=== PATIENT | female | born 1960 | race Caucasian/White ===

== ENCOUNTER 2018-03-11 06:03 | Day surgery (SDC) | payer OTHER ==
[~2018-03-11] VITALS: Ht 152.4 cm; Wt 63.9 kg
[2018-03-11] MEDS ORDERED: SODIUM CHLORIDE 0.9% 1,000 ML IV SCH (06:53)
[2018-03-11 06:54] VITALS: BP 129/73
[2018-03-11] MEDS ORDERED: LORA10TA72 PO (07:01)
[2018-03-11] MEDS ORDERED: ACET-1600 PO (07:01)
[2018-03-11] MEDS ORDERED: NYQUIL PO (07:01)
[2018-03-11] MEDS ORDERED: LIDOCAINE-MPF 1%, 5ML ONE (07:57)
[2018-03-11] MEDS ORDERED: MIDAZOLAM 1 MG/ML, 5ML ONE (08:15)
[2018-03-11] MEDS ORDERED: FLUMAZENIL 0.1 MG/1 ML, 5ML ONE (08:15)
[2018-03-11] MEDS ORDERED: FENTANYL PF 100 MCG/2ML ONE (08:15)
[2018-03-11] MEDS ORDERED: NALOXONE 1 MG/ML, 2ML ONE (08:16)
== END 2018-03-11 11:30 | disposition home or self-care (01) ==
LOC: OUT 06:03
PROVIDERS: ATTEND Nurse Practitioner Family
DX: C34.92 Malignant neoplasm of unspecified part of left bronchus or lung (principal); F32.9 Major depressive disorder, single episode, unspecified; E78.00 Pure hypercholesterolemia, unspecified; K21.9 Gastro-esophageal reflux disease without esophagitis; Z88.8 Allergy status to other drugs, medicaments and biological substances; Z90.710 Acquired absence of both cervix and uterus; Z87.39 Personal history of other diseases of the musculoskeletal system and connective tissue; Z91.02 Food additives allergy status; Z72.89 Other problems related to lifestyle
CPT/HCPCS: 32405; 71045; 77012; 88305; 88341; 88342; 88360; 99156; C2613; J2250; J3010; J7030; 99157; J2310

== ENCOUNTER → 2018-03-20 | Outpatient (CLI) | payer OTHER ==
[~2018-03-20] MED LIST: ACET-1600 PO; GADOBUTROL 7.5 MMOL/7.5 ML PFS ONE; LORA10TA72 PO; NYQUIL PO
== END | disposition home or self-care (01) ==
LOC: PETCFH 09:35
PROVIDERS: ATTEND Nurse Practitioner Family
DX: R59.0 Localized enlarged lymph nodes (principal); R91.8 Other nonspecific abnormal finding of lung field
CPT/HCPCS: 70553; 78815; A9552; A9585

== ENCOUNTER → 2018-03-21 | Outpatient (CLI) | payer OTHER ==
[~2018-03-21] MED LIST changes: -GADOBUTROL 7.5 MMOL/7.5 ML PFS ONE
== END | disposition home or self-care (01) ==
LOC: ROC 10:01
PROVIDERS: ATTEND Radiology Radiation Oncology
DX: C34.32 Malignant neoplasm of lower lobe, left bronchus or lung (principal)
CPT/HCPCS: 99214; G0463

== ENCOUNTER 2018-05-30 14:29 | Outpatient (CLI) | payer OTHER ==
[~2018-05-30 14:29] MED LIST changes: +AMOX1TAB64 PO; +BENZ100C PO; +CISP1VIA3 IV; +IBUP-1484 PO; +ONDA4TAB7 PO; +OXYC5SOL8 PO; +PANT40TA3 PO; +PROC10TA2 PO; +[UNRECOGNIZED DRUG - REMARK] IV
== END 2018-05-30 23:59 | disposition home or self-care (01) ==
LOC: RAD 14:29
PROVIDERS: ATTEND Internal Medicine Hematology & Oncology
DX: Z02.9 Encounter for administrative examinations, unspecified (principal)

== ENCOUNTER 2018-06-09 10:14 | Day surgery (SDC) | payer OTHER ==
[~2018-06-09] VITALS: Ht 152.4 cm; Wt 54.4 kg
[2018-06-09] MEDS ORDERED: SODIUM CHLORIDE 0.9% 1,000 ML IV SCH (10:34)
[2018-06-09] MEDS ORDERED: CEFAZOLIN PMX 1GM/50ML 50 ML IV ONE (11:00)
[2018-06-09 11:02] VITALS: BP 127/96
[2018-06-09] MEDS ORDERED: PANT40TA5 PO (11:08)
[2018-06-09] MEDS ORDERED: LIDOCAINE 1%, 20ML ONE (11:08)
[2018-06-09] MEDS ORDERED: FLUMAZENIL 0.1 MG/1 ML, 5ML ONE (11:55)
[2018-06-09] MEDS ORDERED: MIDAZOLAM 1 MG/ML, 5ML ONE (11:55)
[2018-06-09] MEDS ORDERED: NALOXONE 1 MG/ML, 2ML ONE (11:55)
[2018-06-09] MEDS ORDERED: FENTANYL PF 100 MCG/2ML ONE (11:55)
== END 2018-06-09 14:15 | disposition home or self-care (01) ==
LOC: OUT 10:14
PROVIDERS: ATTEND Internal Medicine Hematology & Oncology
DX: Z45.2 Encounter for adjustment and management of vascular access device (principal); C34.12 Malignant neoplasm of upper lobe, left bronchus or lung; Z79.82 Long term (current) use of aspirin; Z90.710 Acquired absence of both cervix and uterus; Z98.890 Other specified postprocedural states; Z87.891 Personal history of nicotine dependence
CPT/HCPCS: 36561; 76937; 77001; 99156; 99157; C1788; J0690; J1642; J2250; J3010; J3490; J7030; J2310

== ENCOUNTER → 2018-06-10 | Outpatient (CLI) | payer OTHER ==
[~2018-06-10] MED LIST changes: +OMNIPAQUE 350 MG/ML, 100ML BOTTLE ONE; +PANT40TA5 PO
== END | disposition home or self-care (01) ==
LOC: CFH 14:12
PROVIDERS: ATTEND Internal Medicine Hematology & Oncology
DX: C34.12 Malignant neoplasm of upper lobe, left bronchus or lung (principal); R91.8 Other nonspecific abnormal finding of lung field; J98.11 Atelectasis
CPT/HCPCS: 71260; Q9967

== ENCOUNTER 2018-07-11 07:57 | Outpatient (CLI) | payer OTHER ==
[~2018-07-11 07:57] MED LIST changes: -OMNIPAQUE 350 MG/ML, 100ML BOTTLE ONE
== END 2018-07-11 23:59 | disposition home or self-care (01) ==
LOC: ROC 07:57 → EDSTATUS 04-14 10:49
PROVIDERS: ATTEND Radiology Radiation Oncology
DX: Z08 Encounter for follow-up examination after completed treatment for malignant neoplasm (principal); C34.12 Malignant neoplasm of upper lobe, left bronchus or lung
CPT/HCPCS: 99213; G0463

== ENCOUNTER → 2018-07-23 | Outpatient (CLI) | payer OTHER ==
[~2018-07-23] MED LIST changes: +OMNIPAQUE 350 MG/ML, 100ML BOTTLE ONE
== END | disposition home or self-care (01) ==
LOC: CFH 15:04
PROVIDERS: ATTEND Radiology Radiation Oncology
DX: C34.12 Malignant neoplasm of upper lobe, left bronchus or lung (principal); J98.11 Atelectasis; K86.89 Other specified diseases of pancreas; Z92.21 Personal history of antineoplastic chemotherapy; Z87.891 Personal history of nicotine dependence
CPT/HCPCS: 71260; 74177; Q9967

== ENCOUNTER 2018-08-27 14:17 | Emergency (ER) | payer OTHER ==
[~2018-08-27] VITALS: Ht 152.4 cm; Wt 48.4 kg
--- NOTE | 2018-08-27 14:45 | NUR ---
CONTACT WITH PT, 58 YR OLD FEMALE HERE WITH C/O "MY HEART RATE IS ACCELERATED. PT ALSO WITH C/O VOMITING, CONSTIPATION, HAD RADIATION 2 WEEKS AGO (BRAIN, LAST ONE) I'M FEELING ALL THE BAD STUFF COMING AROUND NOW"
[2018-08-27 15:26] LABS: BASOPHILS # (AUTO) 0.08 x10^3/uL (0-0.1); BASOPHILS % (AUTO) 1 % (0-1); EOSINOPHILS # (AUTO) 0.12 x10^3/uL (0-0.4); EOSINOPHILS % (AUTO) 2 % (1-7); LYMPHOCYTES # (AUTO) 0.71 x10^3/uL (1-3.4); LYMPHOCYTES % (AUTO) 12 % (22-44); MD NO; MEAN CORPUSCULAR HEMOGLOBIN 28.6 pg (27.0-34.8); MEAN CORPUSCULAR HGB CONC 33.5 g/dL (32.4-35.8); MEAN CORPUSCULAR VOLUME 85.2 fL (80-100); MEAN PLATELET VOLUME 6.9 fL (7.4-10.4); MONOCYTES # (AUTO) 0.66 x10^3/uL (0.2-0.8); MONOCYTES % (AUTO) 11 % (2-9); NEUTROPHILS # (AUTO) 4.59 x10^3/uL (1.8-6.8); NEUTROPHILS % (AUTO) 75 % (42-75); PLATELET COUNT 265 x10^3/uL (130-400); RED BLOOD COUNT 3.79 x10^6/uL (3.82-5.3); RED CELL DISTRIBUTION WIDTH 16.9 % (9.6-15.2)
[2018-08-27 15:32] LABS: ALANINE AMINOTRANSFERASE 19 U/L (12-78); ALBUMIN 3.3 g/dL (3.4-5.0); ANION GAP 9 mmol/L (5-15); CALCIUM 9.1 mg/dL (8.5-10.1); CHLORIDE 104 mmol/L (98-107); CREATININE 0.79 mg/dL (0.55-1.02)
[2018-08-27 15:37] LABS: ALKALINE PHOSPHATASE 129 U/L (45-117); BILIRUBIN,TOTAL 0.3 mg/dL (0.2-1.0); TOTAL PROTEIN 7.3 g/dL (6.4-8.2); TROPONIN I < 0.015 ng/mL (0.000-0.045)
--- NOTE | 2018-08-27 16:35 | NUR ---
PT WITH CONT ST PER MONITOR. PT DENIES PAIN, SOB. NO ACUTE DISTRESS NOTED. AWAITING MD RE-EVAL.
[2018-08-27] MEDS ORDERED: OMNIPAQUE 350 MG/ML, 100ML BOTTLE ONE (17:56)
--- NOTE | 2018-08-27 18:10 | NUR ---
NO CHANGE IN PT CONDITION NOTED. CONT ST PER MONITOR. CONT TO DENY PAIN/SOB. WAITING FOR FURTHER DISPOSITION. NO NEEDS EXPRESSED AT THIS TIME.
--- NOTE | 2018-08-27 18:52 | NUR ---
JONH CATH DC'D WITH INTACT AFTER FLUSHING WITH HEPARIN PER PROTOCOL. HEPARIN DOSE CHECKED WITH [facility]. PT WAITING FOR ARRIVAL FOR TRANSPORT HOME. NO NEEDS EXPRESSED AT THIS TIME.
[2018-08-27 19:21] VITALS: BP 104/54
== END 2018-08-27 19:37 | disposition home or self-care (01) ==
LOC: ED 18:10
DX: R00.0 Tachycardia, unspecified (principal); Z87.891 Personal history of nicotine dependence; Z79.82 Long term (current) use of aspirin
CPT/HCPCS: 36415; 71275; 80053; 83735; 83880; 84436; 84443; 84484; 85025; 85379; 93005; 99284; Q9967

== ENCOUNTER → 2018-08-27 | Outpatient (CLI) | payer OTHER ==
[~2018-08-27] MED LIST changes: -OMNIPAQUE 350 MG/ML, 100ML BOTTLE ONE
== END | disposition home or self-care (01) ==
LOC: EDSTATUS 08-14 16:15 → ROC 10:44
PROVIDERS: ATTEND Radiology Radiation Oncology
DX: C34.12 Malignant neoplasm of upper lobe, left bronchus or lung (principal)
CPT/HCPCS: 99213; G0463

== ENCOUNTER 2018-10-09 14:38 | Emergency (ER) | payer OTHER ==
[~2018-10-09] VITALS: Ht 152.4 cm; Wt 45.5 kg
--- NOTE | 2018-10-09 15:08 | NUR ---
Sheree león in [facility] - 10/09/18 at 1508 by MARYJO PT MOVED TO ROOM 35
--- NOTE | 2018-10-09 15:08 | NUR ---
PT TO ROOM 31
--- NOTE | 2018-10-09 15:13 | NUR ---
pt requesting to access her port instead of starting iv
[2018-10-09] MEDS ORDERED: SODIUM CHLORIDE 0.9% 1,000ML IVBOLUS ONE (15:30)
[2018-10-09] MEDS ORDERED: ONDANSETRON 2MG/ML, 2ML IVPush ONE (15:30)
[2018-10-09] MEDS ORDERED: ONDANSETRON 2MG/ML, 2ML ONE (15:37)
[2018-10-09 15:50] LABS: BASOPHILS # (AUTO) 0.04 x10^3/uL (0-0.1); BASOPHILS % (AUTO) 1 % (0-1); EOSINOPHILS % (AUTO) 2 % (1-7); LYMPHOCYTES # (AUTO) 1.25 x10^3/uL (1-3.4); LYMPHOCYTES % (AUTO) 19 % (22-44); MD NO; MEAN CORPUSCULAR HEMOGLOBIN 27.6 pg (27.0-34.8); MEAN CORPUSCULAR VOLUME 83.5 fL (80-100); MEAN PLATELET VOLUME 6.5 fL (7.4-10.4); MONOCYTES % (AUTO) 14 % (2-9); NEUTROPHILS # (AUTO) 4.36 x10^3/uL (1.8-6.8); NEUTROPHILS % (AUTO) 66 % (42-75); PLATELET COUNT 433 x10^3/uL (130-400); RED BLOOD COUNT 4.58 x10^6/uL (3.82-5.3); RED CELL DISTRIBUTION WIDTH 16.9 % (9.6-15.2)
[2018-10-09 15:54] LABS: CULTURE INDICATED? NO; MICROSCOPIC NOT IND
[2018-10-09 16:01] LABS: ALBUMIN 3.4 g/dL (3.4-5.0); ANION GAP 10 mmol/L (5-15); CALCIUM 9.6 mg/dL (8.5-10.1); CHLORIDE 100 mmol/L (98-107)
[2018-10-09 16:07] LABS: ALANINE AMINOTRANSFERASE 21 U/L (12-78); ALKALINE PHOSPHATASE 101 U/L (45-117); BILIRUBIN,TOTAL 0.6 mg/dL (0.2-1.0); CREATININE 0.81 mg/dL (0.55-1.02); TROPONIN I < 0.015 ng/mL (0.000-0.045)
[2018-10-09 17:43] VITALS: BP 120/71
--- NOTE | 2018-10-09 17:48 | NUR ---
Patient/Caregiver given discharge instructions and they have confirmed that they understand the instructions. Patient ambulatory with steady gait.
== END 2018-10-09 17:49 | disposition home or self-care (01) ==
LOC: ED 17:40
DX: E86.0 Dehydration (principal); G43.A1 Cyclical vomiting, in migraine, intractable; C34.90 Malignant neoplasm of unspecified part of unspecified bronchus or lung
CPT/HCPCS: 36415; 80053; 81003; 83690; 84484; 85025; 93005; 96361; 96374; 99284; J2405; J7030

== ENCOUNTER 2018-10-31 09:59 | Outpatient (CLI) | payer OTHER ==
[2018-10-31] MEDS ORDERED: OMNIPAQUE 350 MG/ML, 100ML BOTTLE ONE (15:19)
== END 2018-10-31 23:59 | disposition home or self-care (01) ==
LOC: CFH 09:59
PROVIDERS: ATTEND Radiology Radiation Oncology
DX: C34.12 Malignant neoplasm of upper lobe, left bronchus or lung (principal)
CPT/HCPCS: 71260; 74177; Q9967

== ENCOUNTER 2018-11-06 08:00 | Outpatient (CLI) | payer OTHER | END 2018-11-06 23:59 | disposition home or self-care (01) | LOC: ROC 08:00 | PROVIDERS: ATTEND Radiology Radiation Oncology | DX: C34.12 Malignant neoplasm of upper lobe, left bronchus or lung (principal) | CPT/HCPCS: 99213; G0463 ==

== ENCOUNTER 2018-11-27 09:46 | Outpatient (CLI) | payer OTHER | END 2018-11-27 23:59 | disposition home or self-care (01) | LOC: PETCFH 09:46 | PROVIDERS: ATTEND Internal Medicine Hematology & Oncology | DX: C34.12 Malignant neoplasm of upper lobe, left bronchus or lung (principal) | CPT/HCPCS: 78815; A9552 ==

== ENCOUNTER → 2019-04-13 | Outpatient (CLI) | payer OTHER ==
[~2019-04-13] MED LIST changes: -IBUP-1484 PO; +IBUP-1902 PO; +OMNIPAQUE 350 MG/ML, 100ML BOTTLE ONE
== END | disposition home or self-care (01) ==
LOC: CFH 09:01
PROVIDERS: ATTEND Internal Medicine Hematology & Oncology
DX: C34.12 Malignant neoplasm of upper lobe, left bronchus or lung (principal)
CPT/HCPCS: 71260; 74177; Q9967

== ENCOUNTER 2019-04-23 12:42 | Outpatient (CLI) | payer OTHER ==
[~2019-04-23 12:42] MED LIST changes: -OMNIPAQUE 350 MG/ML, 100ML BOTTLE ONE
[2019-04-23] MEDS ORDERED: LIDOCAINE 1%, 10ML ONE (13:04)
== END 2019-04-23 23:59 | disposition home or self-care (01) ==
LOC: RAD 12:42
PROVIDERS: ATTEND Internal Medicine Hematology & Oncology
DX: C34.12 Malignant neoplasm of upper lobe, left bronchus or lung (principal)
CPT/HCPCS: 88305; J3490

== ENCOUNTER → 2019-04-27 | Outpatient (CLI) | payer OTHER | END | disposition home or self-care (01) | LOC: ROC 09:16 | PROVIDERS: ATTEND Radiology Radiation Oncology | DX: Z08 Encounter for follow-up examination after completed treatment for malignant neoplasm (principal); Z92.3 Personal history of irradiation; Z79.899 Other long term (current) drug therapy; Z85.118 Personal history of other malignant neoplasm of bronchus and lung | CPT/HCPCS: 76942; 99213; G0463 ==

== ENCOUNTER → 2019-05-04 | Outpatient (CLI) | payer OTHER ==
[~2019-05-04] MED LIST changes: +GADOTERATE 5 MMOL/10 ML VIAL ONE
== END | disposition home or self-care (01) ==
LOC: CFH 12:37
PROVIDERS: ATTEND Internal Medicine Hematology & Oncology
DX: C79.31 Secondary malignant neoplasm of brain (principal); C34.12 Malignant neoplasm of upper lobe, left bronchus or lung; N63.12 Unspecified lump in the right breast, upper inner quadrant
CPT/HCPCS: 70553; 76642; 77066; A9575; G0279

== ENCOUNTER → 2019-05-11 | Outpatient (CLI) | payer OTHER | END | disposition home or self-care (01) | LOC: CFH 11:14 | PROVIDERS: ATTEND Radiology Radiation Oncology | DX: G31.89 Other specified degenerative diseases of nervous system (principal); I61.1 Nontraumatic intracerebral hemorrhage in hemisphere, cortical; C79.9 Secondary malignant neoplasm of unspecified site; C79.31 Secondary malignant neoplasm of brain | CPT/HCPCS: 70553; A9575 ==

== ENCOUNTER → 2019-07-24 | Outpatient (CLI) | payer OTHER ==
[~2019-07-24] MED LIST changes: -GADOTERATE 5 MMOL/10 ML VIAL ONE; +GADOTERATE 7.5 MMOL/15 ML SYR ONE
== END | disposition home or self-care (01) ==
LOC: CFH 09:23
PROVIDERS: ATTEND Radiology Radiation Oncology
DX: C79.31 Secondary malignant neoplasm of brain (principal); I67.82 Cerebral ischemia; G93.89 Other specified disorders of brain
CPT/HCPCS: 70553; A9575

== ENCOUNTER 2019-07-30 11:00 | Outpatient (CLI) | payer OTHER ==
[~2019-07-30 11:00] MED LIST changes: -GADOTERATE 7.5 MMOL/15 ML SYR ONE
== END 2019-07-30 23:59 | disposition home or self-care (01) ==
LOC: ROC 11:00
PROVIDERS: ATTEND Radiology Radiation Oncology
DX: C79.2 Secondary malignant neoplasm of skin (principal); C34.12 Malignant neoplasm of upper lobe, left bronchus or lung
CPT/HCPCS: 99213; G0463

== ENCOUNTER → 2019-08-10 | Outpatient (CLI) | payer OTHER ==
[~2019-08-10] MED LIST changes: +OMNIPAQUE 350 MG/ML, 100ML BOTTLE ONE
== END | disposition home or self-care (01) ==
LOC: CFH 11:48
PROVIDERS: ATTEND Internal Medicine Hematology & Oncology
DX: C34.12 Malignant neoplasm of upper lobe, left bronchus or lung (principal); C79.51 Secondary malignant neoplasm of bone; J98.4 Other disorders of lung; R91.1 Solitary pulmonary nodule; I31.3 Pericardial effusion (noninflammatory)
CPT/HCPCS: 71260; 74177; Q9967

== ENCOUNTER → 2019-08-20 | Outpatient (CLI) | payer OTHER ==
[~2019-08-20] MED LIST changes: -OMNIPAQUE 350 MG/ML, 100ML BOTTLE ONE
== END | disposition home or self-care (01) ==
LOC: CVU 15:34
PROVIDERS: ATTEND Internal Medicine Hematology & Oncology
DX: C34.12 Malignant neoplasm of upper lobe, left bronchus or lung (principal)
CPT/HCPCS: 93306; 93356

== ENCOUNTER 2019-09-30 07:45 | Outpatient (CLI) | payer OTHER ==
[2019-10-01] MEDS ORDERED: [UNRECOGNIZED DRUG - OTHER] INJ (02:25)
[2019-10-01] MEDS ORDERED: FENT1PAT77 TD (02:25)
[2019-10-01] MEDS ORDERED: METO25TA91 PO (02:25)
[2019-10-01] MEDS ORDERED: LORA-702 PO (02:25)
[2019-10-01] MEDS ORDERED: MULT-508 PO (02:25)
== END 2019-09-30 23:59 | disposition home or self-care (01) ==
LOC: ROC 07:45
PROVIDERS: ATTEND Radiology Radiation Oncology
DX: Z02.9 Encounter for administrative examinations, unspecified (principal)

== ENCOUNTER 2019-10-01 01:07 | Emergency (ER) | payer OTHER ==
[~2019-10-01] VITALS: Ht 152.4 cm; Wt 52.3 kg
[2019-10-01] MEDS ORDERED: MORPHINE SULFATE 4 MG/ML, 1ML ONE ×2 (01:54→04:01)
[2019-10-01] MEDS ORDERED: SODIUM CHLORIDE FLUSH 10ML SYR IVF ONE (02:00)
[2019-10-01] MEDS ORDERED: ONDANSETRON 2MG/ML, 2ML IVPush ONE (02:00)
[2019-10-01] MEDS: MORPHINE SULFATE 4 MG/ML, 1ML IVPush PRN ×2 (02:07→04:04)
[2019-10-01] MEDS ORDERED: ONDANSETRON 2MG/ML, 2ML ONE (02:08)
[2019-10-01 02:20] LABS: BASOPHILS # (AUTO) 0.03 x10^3/uL (0-0.1); BASOPHILS % (AUTO) 0 % (0-1); EOSINOPHILS # (AUTO) 0.07 x10^3/uL (0-0.4); EOSINOPHILS % (AUTO) 1 % (1-7); LYMPHOCYTES % (AUTO) 11 % (22-44); MD NO; MEAN CORPUSCULAR HEMOGLOBIN 28.2 pg (27.0-34.8); MEAN CORPUSCULAR HGB CONC 32.7 g/dL (32.4-35.8); MEAN CORPUSCULAR VOLUME 86.3 fL (80-100); MEAN PLATELET VOLUME 6.9 fL (7.4-10.4); MONOCYTES # (AUTO) 0.68 x10^3/uL (0.2-0.8); MONOCYTES % (AUTO) 9 % (2-9); NEUTROPHILS # (AUTO) 6.08 x10^3/uL (1.8-6.8); NEUTROPHILS % (AUTO) 79 % (42-75); PLATELET COUNT 228 x10^3/uL (130-400); RED BLOOD COUNT 4.05 x10^6/uL (3.82-5.3); RED CELL DISTRIBUTION WIDTH 18.7 % (9.6-15.2)
[2019-10-01] MEDS ORDERED: MULT-508 PO (02:25)
[2019-10-01] MEDS ORDERED: LORA-702 PO (02:25)
[2019-10-01] MEDS ORDERED: [UNRECOGNIZED DRUG - OTHER] INJ (02:25)
[2019-10-01] MEDS ORDERED: METO25TA91 PO (02:25)
[2019-10-01] MEDS ORDERED: FENT1PAT77 TD (02:25)
--- NOTE | 2019-10-01 02:29 | NUR ---
Upon first contact, pt resting in gurney in gown, appears moderately uncomfortable, leaning forward and stating she "cant really sit back because of the pain." Pt denies any N/V. NAD. RESP WNL. Labs sent. call light on lap, given warm blanket for comfort. at BS, pt is hard of hearing. Placed on SPO2/BP/ECG monitoring. Satting 97% RA prior to medicating, placed on NC 2L after medicating. Port accessed. Per MD pt fentanyl patch left in place and pt medicated per JUN. Discomfort decreased after medication. c
[2019-10-01 02:30] LABS: INTERNATIONAL NORMALIZED RATIO 0.97 (0.93-1.1); PROTHROMBIN TIME 10.3 Seconds (9.6-11.5)
[2019-10-01 02:31] LABS: ALBUMIN 2.9 g/dL (3.4-5.0); ANION GAP 5 mmol/L (5-15); CALCIUM 8.6 mg/dL (8.5-10.1); CHLORIDE 103 mmol/L (98-107); CREATININE 0.94 mg/dL (0.55-1.02)
--- NOTE | 2019-10-01 02:33 | NUR ---
RN attempted med req. Pt and unable to completely verify meds and doses at this time.
[2019-10-01 02:41] LABS: ALANINE AMINOTRANSFERASE 256 U/L (12-78); ALKALINE PHOSPHATASE 456 U/L (45-117); BILIRUBIN,TOTAL 0.4 mg/dL (0.2-1.0)
--- NOTE | 2019-10-01 02:45 | NUR ---
pt to CT via guronesimo, waiting in room. Pt NAD, VSS.
--- NOTE | 2019-10-01 02:54 | NUR ---
pt back from CT, laying back in gurney appears to be more comfortable now, relaxing back on gurney, NAD, skin is warm and pale. Given oral swab sticks for comfort. at BS. Waiting for CT results and pt to obtain a UA. WCTM.
[2019-10-01] MEDS ORDERED: OMNIPAQUE 350 MG/ML, 100ML BOTTLE ONE (02:58)
--- NOTE | 2019-10-01 03:12 | NUR ---
Pt helped to and from bedside commode via gurney, transfer stand by assist. UA sent to lab, denies additional needs at this time. WCTM. waiting on CT or UA results.
[2019-10-01 03:17] LABS: MICROSCOPIC AUTO
[2019-10-01 03:42] VITALS: BP 116/73
--- NOTE | 2019-10-01 03:42 | NUR ---
pt resting in gurney, eyes closed, waiting on CT read, no change in condition, WCTM.
--- NOTE | 2019-10-01 04:30 | NUR ---
Patient/Spouse given discharge instructions and they have confirmed that they understand the instructions. Patient transferred smoothly with stand by assist to wheelchair for DC. Denies additional questions or needs at this time. Condition unchanged. No personal belongings left in room at time of DC.
== END 2019-10-01 05:04 | disposition home or self-care (01) ==
LOC: ED 03:23
DX: C22.9 Malignant neoplasm of liver, not specified as primary or secondary (principal); R10.11 Right upper quadrant pain; R11.0 Nausea; R94.5 Abnormal results of liver function studies; Z85.118 Personal history of other malignant neoplasm of bronchus and lung; Z92.21 Personal history of antineoplastic chemotherapy; Z87.891 Personal history of nicotine dependence
CPT/HCPCS: 36415; 71045; 74177; 80053; 81001; 83690; 85025; 85610; 85730; 87086; 93005; 96374; 96375; 96376; 99285; J2270; J2405; Q9967